=== PATIENT | male | born 1960 | race Caucasian/White ===

== ENCOUNTER 2019-01-02 06:00 | Day surgery (SDC) | payer OTHER ==
[2019-01-01 11:31] LABS: BASOPHILS 0.2 % (0-2); EOSINOPHILS 1.2 % (0-7); HEMATOCRIT 41.6 % (42.0-54.0); HEMOGLOBIN 13.9 g/dL (13.5-17.5); IMMATURE GRANULOCYTES 0.2 % (0-5); LYMPHOCYTES 36.2 % (15-50); MCH 32.5 pg (26.0-34.0); MCHC 33.4 g/dL (31.0-37.0); MCV 97.2 fL (80.0-100.0); MONOCYTES 8.8 % (2-11); NEUTROPHILS 53.4 % (40-80); PLATELET COUNT 173 10x3/uL (130-400); RBC 4.28 10x6/uL (4.20-6.10); WBC 8.3 10x3/uL (4.8-10.8)
[2019-01-01 11:39] LABS: ANION GAP 17.1 mmol/L (8-16); CALCIUM 8.3 mg/dL (8.5-10.1); CREATININE - SERUM 1.1 mg/dL (0.6-1.3); POTASSIUM - SERUM 4.1 mmol/L (3.5-5.1)
[~2019-01-02] VITALS: Ht 180.3 cm; Wt 136.5 kg
[~2019-01-02 06:00] MED LIST: HYDROCODON-ACE1 EA10 PO; PERCOCET 10-321 EAC1 PO
[2019-01-02] MEDS ORDERED: [UNRECOGNIZED DRUG - OTHER] (06:47)
[2019-01-02 06:55] VITALS: BP 116/82; Ht 180.3 cm; Wt 136.5 kg
[2019-01-02] MEDS ORDERED: DEMEROL100 MG PO (09:02)
--- NOTE | 2019-01-02 10:08 | NUR ---
1000 ASSISSTED UP TO BR, VOIDS, RETURNED TO BED O2 88% ON ROOM AIR, RETURNED O2 NC,, FL DIET ORDERED. CRITERIA FOR RELEASE GIVEN.
--- NOTE | 2019-01-02 11:09 | NUR ---
1105 PT DRESSED, DC INSTS GIVEN VOICED UNDERSTANDING RX GIVEN RELEASED IN WC WITH [facility].
--- NOTE | 2019-01-11 09:41 | OP ---
PATIENT NAME: HALLIE AGUILAR MEDICAL RECORD: [id number] :64 LOCATION:D.OPS ADMISSION DATE: SURGEON: DELGADO SHANNON MD DATE OF OPERATION: 01/02/2019 PREOPERATIVE DIAGNOSES: 1. Recurrent ventral hernia. 2. Chronic obstructive pulmonary disease. 3. Tobacco dependence syndrome. 4. Coronary artery disease. 5. Hypertension. 6. Hypercholesterolemia. 7. Morbid obesity with a BMI of 42. POSTOPERATIVE DIAGNOSES: 1. Recurrent ventral hernia. 2. Chronic obstructive pulmonary disease. 3. Tobacco dependence syndrome. 4. Coronary artery disease. 5. Hypertension. 6. Hypercholesterolemia. 7. Morbid obesity with a BMI of 42. PROCEDURE: Recurrent ventral hernia repair with 6.[address] mesh. SURGEON: Delgado Shannon MD COMPUTER SYSTEMS SECURITY ADMINISTRATOR: Xochitl Ordaz APRN REPORT OF OPERATION: The patient's abdomen was prepped and draped in sterile fashion. The patient had a right paramedian incision, this was reopened and the electrocautery was used to dissect through the subcutaneous tissues and we immediately encountered the hernia sac. This hernia sac held omental tissue within it. We freed up the hernia sac and the omentum. The omentum was then placed back into the abdominal cavity. The hernia sac was excised all the way down to the fascial edges and the fascial edges were cleaned off. The fascia was cleared off above and below and we noted at that time that the hernia defect was about 2 x 2.5 cm in size. A 6.[address] mesh was inserted in an underlay fashion and sutured down on all 4 sides using interrupted 0 Prolenes. The fascia was then closed transversely overlying the mesh using running 0 Vicryls. There was good approximation of the tissue and there was no sign of any active bleeding. The subcutaneous tissues were reapproximated with multiple interrupted 3-0 Vicryls and the skin was closed with running subcutaneous 5-0 Monocryl. A 10 mL of 0.25% Marcaine with epinephrine was infused into the surrounding tissues and the wound was dressed appropriately. COMPLICATIONS: None. CONDITION: Stable. ANESTHESIA: General endotracheal and local. BLOOD LOSS: 50 mL. TRANSINT:[id number] Voice Confirmation ID: [id number] DOCUMENT ID: [id number] OPERATIVE REPORT [id number] LAURENHALLIE JIMENEZDELGADO PEDERSON MD at 0941 CC: DHAVAL MCKEON MD [id number] DICTATION DATE: 01/02/19908 DOT NET DEVELOPER: 01/02/19934 DEP SDC 01/02/19 [id number] [place] [address]
== END 2019-01-02 11:05 | disposition home or self-care (01) ==
LOC: D.OPS 06:00 → D.PAN 08:00 → D.OPS 08:00
PROVIDERS: Surgery
DX: K43.2 Incisional hernia without obstruction or gangrene (principal); J44.9 Chronic obstructive pulmonary disease, unspecified; F17.200 Nicotine dependence, unspecified, uncomplicated; I25.10 Atherosclerotic heart disease of native coronary artery without angina pectoris; I10 Essential (primary) hypertension; E78.00 Pure hypercholesterolemia, unspecified; E66.01 Morbid (severe) obesity due to excess calories; Z68.41 Body mass index [BMI] 40.0-44.9, adult; Z01.812 Encounter for preprocedural laboratory examination

== ENCOUNTER 2019-01-06 19:38 | Emergency (ER) | payer OTHER ==
[~2019-01-06] VITALS: Ht 180.3 cm; Wt 137.4 kg
[~2019-01-06 19:38] MED LIST changes: +DEMEROL100 MG PO; +[UNRECOGNIZED DRUG - OTHER]
[2019-01-06 20:00] VITALS: Ht 180.3 cm; Wt 137.4 kg
[2019-01-06 20:43] LABS: BASOPHILS 0.1 % (0-2); EOSINOPHILS 0.8 % (0-7); HEMATOCRIT 43.1 % (42.0-54.0); HEMOGLOBIN 14.2 g/dL (13.5-17.5); IMMATURE GRANULOCYTES 0.2 % (0-5); LYMPHOCYTES 28.6 % (15-50); MCH 31.9 pg (26.0-34.0); MCHC 32.9 g/dL (31.0-37.0); MCV 96.9 fL (80.0-100.0); MEAN PLATELET VOLUME 9.8 fL (7.4-10.4); MONOCYTES 5.5 % (2-11); NEUTROPHILS 64.8 % (40-80); PLATELET COUNT 172 10x3/uL (130-400); RBC 4.45 10x6/uL (4.20-6.10); RDW 13.8 % (11.5-14.5); WBC 9.1 10x3/uL (4.8-10.8)
[2019-01-06 20:56] LABS: ALBUMIN 3.3 g/dL (3.4-5.0); ALKALINE PHOSPHATASE 83 U/L (46-116); ALT (SGPT) 23 U/L (10-68); BILIRUBIN - TOTAL 0.36 mg/dL (0.2-1.3); C-REACTIVE PROTEIN 3.9 mg/dL (0.0-0.9); CALC OSMOLALITY 280 mosm/kg (275-300); CALCIUM 8.4 mg/dL (8.5-10.1); CARBON DIOXIDE 24.3 mmol/L (21.0-32.0); CHLORIDE - SERUM 104 mmol/L (98-107); GLUCOSE 120 mg/dL (74-106); POTASSIUM - SERUM 3.9 mmol/L (3.5-5.1); SODIUM 139 mmol/L (136-145); UREA NITROGEN 19 mg/dL (7-18); eGFR NON AFRICAN AMERICAN 82 mL/min (90-120)
[2019-01-07] MEDS ORDERED: CLEOCIN HCL300 MG PO (00:34)
[2019-01-07 00:46] VITALS: BP 124/80
== END 2019-01-07 00:43 | disposition home or self-care (01) ==
LOC: D.ER 19:38
PROVIDERS: Family Medicine
DX: L03.311 Cellulitis of abdominal wall (principal); Z98.890 Other specified postprocedural states